=== PATIENT | female | born 1980 | race Caucasian/White ===

== ENCOUNTER 2024-11-28 06:36 | Day surgery (SDC) | payer OTHER ==
[2024-11-27 09:23] VITALS: BMI 21.2
[2024-11-28] MEDS ORDERED: ISOSULFAN BLUE 50 MG/5 ML VIAL SQ ONE (10:35)
[2024-11-28] MEDS ORDERED: LIDOCAINE HCL 1%, 10 MG/ML (20ML VIAL) ONE (10:35)
[2024-11-28] MEDS ORDERED: MIDAZOLAM HCL 2 MG/2 ML SINGLE DOSE VIAL ONE (11:56)
[2024-11-28] MEDS ORDERED: PROPOFOL 40 ML ONE (11:56)
[2024-11-28] MEDS ORDERED: SUCCINYLCHOLINE CHLORIDE 200 MG/10 ML SYRINGE ONE (11:57)
[2024-11-28] MEDS ORDERED: ONDANSETRON 4 MG/2 ML VIAL ONE (12:15)
[2024-11-28] MEDS ORDERED: ceFAZolin SODIUM 1 GM VIAL ONE (12:15)
[2024-11-28] MEDS ORDERED: DEXAMETHASONE SOD PHOSPHATE 4 MG/1 ML VIAL ONE (12:15)
[2024-11-28] MEDS: LIDOCAINE HCL 1%, 10 MG/ML (20ML VIAL) INF ONE (12:33)
[2024-11-28] MEDS ORDERED: ONDANSETRON 4 MG/2 ML VIAL IVPUSH PRN (13:23)
[2024-11-28] MEDS: LACTATED RINGERS SOLUTION 1,000 ML IV SCH (13:29)
[2024-11-28 14:40] VITALS: RESP 18
[2024-11-28 16:00] VITALS: BP 138/80; TEMP 97.9
[2024-11-28 16:02] VITALS: PULSE 78
== END 2024-11-28 16:02 | disposition home or self-care (01) ==
LOC: JASU-SURG 06:36
PROVIDERS: ATTEND Surgery
PROC: 0HBT0ZZ Excision of Right Breast, Open Approach (ICD-10-PCS; principal; 2024-11-28 12:00)
DX: D24.1 Benign neoplasm of right breast (principal)
CPT/HCPCS: 19281; 76098-TC-FY; 77065-TC; 88307-TC; 88341-TC; 88342-TC; 94760